=== PATIENT | female | born 2000 | race Caucasian/White ===

== ENCOUNTER → 2020-10-20 | Outpatient (CLI) | payer BC, OTHER ==
--- NOTE | 2020-10-20 15:39 | EKG ---
[place] [address] [facility] [place] [address] ELECTROCARDIOGRAM REPORT Name: FROILANMARIA DEL ROSARIOCHAVOTA WILLIAM Room #: [facility]#: [id number] Admission: 10/20/20 Attend Phys: Physician not on staff Discharge: Date of : [birth year] Report #: [id number] [facility] Test Date: 2020-10-20 Test Time: 11:36:11 Pat Name: DANY CHIRINOS Department: Room: Gender: F Accounts Payable Professional: ROSA : 2000 Requested By: Physician staff Order Number: [id number] MD: Chris Ibrahim Measurements Intervals [place] Rate: 94 P: 73 KS: 111 QRS: 60 QRSD: 85 T: -4 QT: 348 QTc: 436 Interpretive Statements Sinus rhythm Borderline short [place] interval Probable left atrial enlargement RBBB Borderline T abnormalities, anterior leads No previous ECG available for comparison Electronically Signed On 10-20-2020 15:39:47 [employer] by Chris Ibrahim [email or web address] <ELECTRONICALLY SIGNED> By: Chris Ibrahim MD, [facility] 10/20/20 [id number] Chris Ibrahim MD, FACC /EPI
== END ==
LOC: CV 11:11
DX: I49.9 Cardiac arrhythmia, unspecified (principal); R55 Syncope and collapse